=== PATIENT | female | born 1990 | race Caucasian/White ===

== ENCOUNTER 2018-11-09 11:01 | Emergency (ER) | payer OTHER ==
[~2018-11-09] VITALS: Ht 162.6 cm; Wt 67.6 kg
[2018-11-09 11:45] VITALS: BP 127/85
== END 2018-11-09 14:05 | disposition home or self-care (01) ==
LOC: ER 11:01
DX: S06.0X9A Concussion with loss of consciousness of unspecified duration, initial encounter (principal); H50.9 Unspecified strabismus; H55.09 Other forms of nystagmus; W18.39XA Other fall on same level, initial encounter; Y93.39 Activity, other involving climbing, rappelling and jumping off; Y92.89 Other specified places as the place of occurrence of the external cause; Y99.8 Other external cause status
CPT/HCPCS: 70450; 81025; 99284; Z7610